=== PATIENT | male | born 2005 | race Caucasian/White ===

== ENCOUNTER 2024-06-13 20:17 | Emergency (ER) | payer SELFPAY ==
[~2024-06-13] VITALS: Ht 162.6 cm; Wt 88.0 kg
[2024-06-13 20:22] VITALS: BP 145/62; PULSE 95; RESP 14; TEMP 98.2; O2SAT 99
== END 2024-06-13 22:17 | disposition home or self-care (01) ==
LOC: MED 20:17
DX: S00.83XA Contusion of other part of head, initial encounter (principal); S20.211A Contusion of right front wall of thorax, initial encounter; Y08.89XA Assault by other specified means, initial encounter; Y93.89 Activity, other specified; Y92.89 Other specified places as the place of occurrence of the external cause; Y99.8 Other external cause status
CPT/HCPCS: 70450; 70486; 71101; 99284